=== PATIENT | female | born 1995 | race American Indian/Alaskan Native ===

== ENCOUNTER 2017-06-20 21:50 | Emergency (ER) | payer SELFPAY ==
[2017-06-20] MEDS ORDERED: CLARITIN PO ONE (22:58)
--- NOTE | 2017-06-20 22:58 | Emergency Department Report ---
HPI - General Chief Complaint: Allergic Reaction Time Seen by Provider: 06/20/17 22:44 - HPI HPI: This is a 21-year-old female presents to the ED complaining of generalized rash and itching that started 2 weeks ago and has gotten worse in the past week. Patient states she does not recall coming into contact with any allergen or irritant. Patient states she did use of male shaving cream to shave him about 2 weeks ago. She states no fever, chills, nausea, vomiting ED Past Medical Hx - Past Medical History Hx Asthma: Yes - Surgical History Past Surgical History?: No - Social History Smoking Status: Never Smoker Substance Use Type: None - Medications Home Medications: Home Medications Medication Instructions Recorded Confirmed Last Taken Type Gentamicin 0.3% Ophth Soln 2 drops OS Q4H #1 bottle 08/20/15 09/06/15 09/03/15 09:00 Rx Hydroxyzine HCl 25 mg PO QHS #20 tablet 06/20/17 Unknown Rx Triamcinolone Acetonide 1 applic TP TID #120 ml 06/20/17 Unknown Rx [Triamcinolone 0.1% LOTION] predniSONE [Deltasone] 10 mg PO QDAY #5 tab 06/20/17 Unknown Rx ED Review of Systems ROS: Stated complaint: SKIN IRRITATION Other details as noted in HPI Constitutional: denies: chills, fever Eyes: denies: eye pain, eye discharge, vision change ENT: denies: ear pain, throat pain Respiratory: denies: cough, shortness of breath, wheezing Cardiovascular: denies: chest pain, palpitations Endocrine: no symptoms reported Gastrointestinal: denies: abdominal pain, nausea, diarrhea Genitourinary: denies: urgency, dysuria, discharge Musculoskeletal: denies: back pain, joint swelling, arthralgia Skin: rash, pruritus. denies: lesions Neurological: denies: headache, weakness, paresthesias, confusion Psychiatric: denies: anxiety, depression Hematological/Lymphatic: denies: easy bleeding, easy bruising Physical Exam - Physical Exam Vital Signs: Vital Signs 06/20/17 22:30 Temperature 98.4 F Pulse Rate 75 Blood Pressure 139/103 O2 Sat by Pulse 97 Oximetry Physical Exam: GENERAL: Alert and oriented x3, no apparent distress, Normal Gait, atraumatic. HEAD: Head is normocephalic and a-traumatic. EYES: Extra ocular muscles are intact. Pupils are equal, round, and reactive to light and accommodation. EARS: symetrical, atraumatic, non tender, ear canal clear and moderate cerumen, tympanic membrance non inflamed. gross auditory nml bilaterally. NOSE: Nose symetrical, Nontender,Nares appeared normal. MOUTH:Mouth is well hydrated and without lesions. Tonsils nonerythematous or swollen, Uvula midline, Tongue not elevated. Mucous membranes are moist. Posterior pharynx clear, no exudate or lesions. Patent airways. NECK: Supple. Non edematous, No carotid bruits. No lymphadenopathy or thyromegaly. No C-spine tenderness LUNGS: Symetrical with respiration, No wheezing, no rales or crackles, CTAB. HEART: S1, S2 present, regular rate and rhythm without murmur, no rubs, no gallops. Non tender to palpation ABDOMEN: No organomegaly was noted,Positive bowel sounds, soft, and non- distended. . Nontender to palpation on all Quadrants, NO CVA tenderness. BACK: Full range of motion, no spinal tenderness, nontender to palpation. SKIN: Warm and dry, generalized erythema is, scattered, raised rash seen in trunk chest and neck and thighs. No other lesions, No ulceration or induration present. ED Course Vital Signs 06/20/17 22:30 Temperature 98.4 F Pulse Rate 75 Blood Pressure 139/103 O2 Sat by Pulse 97 Oximetry ED Medical Decision Making - Medical Decision Making 21-year-old female presents with a nonspecific rash eruption ED course: Patient received Solu-Medrol and Claritin in ED Discussed with patient to take medication as prescribed. Discussed follow-up with primary care physician/entry level management if unresolved Discussed with patient and explained the allergic reaction to an irritant Vital signs are normal patient is in no acute respiratory distress/she is alert and oriented 3 and understands instructions given Critical care attestation.: If time is entered above; I have spent that time in minutes in the direct care of this critically ill patient, excluding procedure time. ED Disposition Clinical Impression: Rash and nonspecific skin eruption, Allergic dermatitis Disposition: - TO HOME OR SELFCARE Is pt being admited?: No Does the pt Need Aspirin: No Condition: Stable Instructions: Acute Rash (ED) Prescriptions: Hydroxyzine HCl 25 mg PO QHS #20 tablet predniSONE [Deltasone] 10 mg PO QDAY #5 tab Triamcinolone Acetonide [Triamcinolone 0.1% LOTION] 1 applic TP TID #120 ml Referrals: PRIMARY CARE, [Primary Care Provider] - 3-5 Days [facility] [Outside] - 3-5 Days [facility] [Outside] - 3-5 Days LUMA DAMON MD [Staff Physician] - 3-5 Days Forms: Work/School Release Form(ED) Time of Disposition: 23:31
[2017-06-21 01:30] VITALS: BP 137/92
== END 2017-06-21 00:02 | disposition home or self-care (01) ==
LOC: ED 21:50
DX: L23.9 Allergic contact dermatitis, unspecified cause (principal); R21 Rash and other nonspecific skin eruption; J45.909 Unspecified asthma, uncomplicated
CPT/HCPCS: 96372; 99282; J2930

== ENCOUNTER 2019-05-05 01:37 | Emergency (ER) | payer SELFPAY ==
[2019-05-05 01:51] VITALS: BP 128/90
[2019-05-05] MEDS ORDERED: DELTASONE PO ONE (03:47)
[2019-05-05] MEDS ORDERED: BENADRYL PO ONE ×2 (03:47→03:48)
[2019-05-05] MEDS ORDERED: DELTASONE ONE (03:47)
[2019-05-05] MEDS ORDERED: BANOPHEN PO ONE (03:47)
--- NOTE | 2019-05-05 04:04 | Emergency Department Report ---
ED Rash HPI - HPI Chief Complaint: Skin Rash Stated Complaint: RASH ON BOTH HANDS AND FINGERS Time Seen by Provider: 05/05/19 04:00 Duration: 2 weeks Location: Upper Extremities (both hands) Rash Symptoms: Yes Itching Other History: 3-year-old female presents to the emergency room for rash on both hands and fingers 2 weeks. Patient reports that the rash itches and feels it is spreading. 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 ED Review of Systems ROS: Stated complaint: RASH ON BOTH HANDS AND FINGERS Other details as noted in HPI Comment: All other systems reviewed and negative Skin: rash ED Past Medical Hx - Past Medical History Previous Medical History?: Yes Hx Asthma: Yes - Surgical History Past Surgical History?: No - Social History Smoking Status: Never Smoker Substance Use Type: Alcohol - Medications Home Medications: Home Medications Medication Instructions Recorded Confirmed Last Taken Type Gentamicin 0.3% Ophth Soln 2 drops OS Q4H #1 bottle 08/20/15 09/06/15 09/03/15 09:00 Rx Triamcinolone Acetonide 1 applic TP TID #120 ml 06/20/17 Unknown Rx [Triamcinolone 0.1% LOTION] hydrOXYzine HCl [Hydroxyzine HCl] 25 mg PO QHS #20 tablet 06/20/17 Unknown Rx predniSONE [Deltasone] 10 mg PO QDAY #5 tab 06/20/17 Unknown Rx Triamcinolone 0.1% [Kenalog 0.1% 1 applic TP TID #1 tube 05/05/19 Unknown Rx CREAM] Rash Exam - Exam General: Vital signs noted. No distress. Alert and acting appropriately. HEENT: No Periorbital Edema, No Conjuctival Injection, No Chemosis, No Perioral Edema, No Tongue Edema, No Uvular Edema, No Compromised Airway, No Drooling Skin: Yes Maculopapular Rash, Yes Erythema, No Tenderness Other: Positive: Abdomen Normal, Neurologic Normal ED Course Vital Signs 05/05/19 01:43 Temperature 98.0 F Pulse Rate 98 H Respiratory 18 Rate Blood Pressure 128/90 O2 Sat by Pulse 98 Oximetry ED Medical Decision Making - Medical Decision Making 23-year-old female comes in for rash to hands after using acrylic at the nail salon. Patient appears to have contact dermatitis will be placed on Kenalog ointment 3 times a day. Critical care attestation.: If time is entered above; I have spent that time in minutes in the direct care of this critically ill patient, excluding procedure time. ED Disposition Clinical Impression: Contact dermatitis Disposition: DC-01 TO HOME OR SELFCARE Is pt being admited?: No Does the pt Need Aspirin: No Condition: Stable Instructions: Contact Dermatitis (ED) Additional Instructions: Please use cream as prescribed. Avoid getting nail dust. Prescriptions: Triamcinolone 0.1% [Kenalog 0.1% CREAM] 1 applic TP TID #1 tube [facility] [Primary Care Provider] - 3-5 Days Forms: Work/School Release Form(ED)
== END 2019-05-05 04:05 | disposition home or self-care (01) ==
LOC: ED 01:37
DX: L25.9 Unspecified contact dermatitis, unspecified cause (principal); J45.909 Unspecified asthma, uncomplicated; Z79.899 Other long term (current) drug therapy; Z88.0 Allergy status to penicillin; Z88.1 Allergy status to other antibiotic agents
CPT/HCPCS: 99282; J7512